=== PATIENT | female | born 1975 | race Caucasian/White ===

== ENCOUNTER 2021-02-05 17:23 | Emergency (ER) | payer OTHER, MEDICAID, SELFPAY ==
[2021-02-05 17:32] VITALS: BP 130/83; PULSE 83; RESP 16; TEMP 36.5; O2SAT 98; BMI 35.0
[2021-02-05] MEDS: KETOROLAC 30 MG/ML VIAL IM (19:47)
[2021-02-05] MEDS: OXYCODONE/APAP 5/325 PREPACK 1 BOTTLE MISC (19:47)
[2021-02-05] MEDS: CLINDAMYCIN 150 MG CAPSULE 300 MG PO (19:48)
--- NOTE | 2021-02-06 04:49 | ED.DENTAL ---
HPI - Dental/Oral General Chief complaint: Dental/Oral Stated complaint: RT SIDE MOUTH/JAW PAIN Time Seen by Provider: 02/05/21 18:01 Source: patient Mode of arrival: Ambulatory Limitations: no limitations History of Present Illness HPI Narrative: 45-year-old woman with no significant medical history presents complaining of right-sided dental pain. She notes that she has had intermittent problems with tooth 3. It has a large amalgam filling and a significant portion of the posterior cusps are broken off. It has been intermittently tender but over the last 24 hours has gotten significantly more painful now with swelling radiating up into the maxillary area. She denies any fevers, cough, chills, vomiting, diarrhea, chest pain, shortness of breath. She is asking for help in treating the dental infection and helping with the pain overall. Related Data Previous Rx's Medication Instructions Recorded clindamycin HCl 300 mg capsule 300 mg PO TID 7 Days #21 cap 02/05/21 oxycodone-acetaminophen 5 mg-325 1 tab PO Q6H PRN #12 tab 02/05/21 mg tablet Allergies Allergy/AdvReac Type Severity Reaction Status Date / Time amoxicillin [From Augmentin] Allergy Severe Anaphylaxis Verified 02/05/21 17:32 clavulanic acid Allergy Severe Anaphylaxis Verified 02/05/21 17:32 [From Augmentin] Review of Systems Review of Systems Narrative: Remainder of complete review of systems is otherwise unremarkable except for that included in the HPI. Patient History Social History Smoking Status: Never smoker Smoking Status: Never smoker Substance Use Type: marijuana Exam Narrative Exam Narrative: General: Alert appropriate in no acute distress HEENT: Mild fullness over the right maxillary area. Tooth 3. Has of large amalgam and large fractured posterior cusp. There is no obvious drainable abscess or draining infection. There is no fullness in the posterior pharynx. Respiratory: Able to speak in full sentences, no obvious respiratory distress Skin: No obvious rashes, warm and dry Neurologic: Grossly intact no obvious asymmetries or abnormalities Psych: appropriate insight and affect, cooperative Initial Vital Signs Initial Vital Signs: Vital Signs Temperature 97.7 F 02/05/21 17:32 Pulse Rate 83 02/05/21 17:32 Respiratory Rate 16 02/05/21 17:32 Blood Pressure 130/83 02/05/21 17:32 Pulse Oximetry 98 02/05/21 17:32 Course Orders Ordered: Discontinued Medications Clindamycin HCl (Clindamycin 150 Mg Capsule) 300 mg PO NOW ONE Stop: 02/05/21 19:38 Last Admin: 02/05/21 19:48 Dose: 300 mg Documented by: CHU Ketorolac Tromethamine (Ketorolac 30 Mg/Ml Vial) 30 mg IM NOW ONE Stop: 02/05/21 19:38 Last Admin: 02/05/21 19:47 Dose: 30 mg Documented by: CHU Oxycodone/Acetaminophen (Oxycodone/Apap 5/325 Prepack) 1 bottle MISC SEEINSTR ONE Stop: 02/05/21 19:38 Last Admin: 02/05/21 19:47 Dose: 1 bottle Documented by: CHU MDM - Dental/Oral MDM Narrative Medical decision making narrative: 45-year-old woman with 24 hours of increasing pain related to tooth 3. Now with fullness spreading up to the right maxillary suggesting infection. She is placed on clindamycin due to a penicillin allergy and given small course of Percocet for pain control. Recommended she contact her dentist as soon as possible for definitive care. There is no evidence of significant drainable abscess or retropharyngeal abscess at this time. She is safe for home discharge Discharge Plan Departure Patient Disposition: Home Clinical Impression: Toothache, Dental abscess Instructions: DI for Dental Pain Activity Restrictions/Additional Instructions: Thank you for coming in today You do have an abscess and I suspect it is from the broken tooth on the upper right in the very back. Please complete the course of antibiotics. Definitive treatment is likely going to be having that tooth pulled. Please contact see Mar on Sunday to schedule an appointment. Using 400 mg of ibuprofen (2 [id number] pills) and 1 Tylenol every 6 hours can be very helpful in controlling pain. For severe pain using 400 mg of ibuprofen and 1 Percocet can be helpful. I hope you feel better Prescriptions: New clindamycin HCl 300 mg capsule 300 mg PO TID 7 Days Qty: 21 RF: 0 oxycodone-acetaminophen 5-325 mg tablet 1 tab PO Q6H PRN (Reason: pain) Qty: 12 RF: 0
== END 2021-02-05 20:02 | disposition home or self-care (01) ==
PROVIDERS: Emergency Provider Emergency Medicine
DX: K08.89 Other specified disorders of teeth and supporting structures (principal); K04.7 Periapical abscess without sinus
CPT/HCPCS: 96372; 99283; J1885

== ENCOUNTER → 2022-05-09 10:41 | Outpatient (CLI) | payer OTHER, SELFPAY ==
--- NOTE | 2022-05-09 | DI.RAD.S_ITS ---
PROCEDURE: XR LUMBAR SPINE 2-3V INDICATIONS: LOW BACK PAIN TECHNIQUE: 3 views of the lumbar spine were acquired. COMPARISON: [facility], CT, CT ABDOMEN PELVIS WITH CONTRAST, 01/06/2022, 9:30. FINDINGS: Bones: 5 [id number] vertebrae are present. Tiny vertebral body osteophytes. There is normal bony alignment. No vertebral body compression fractures. No suspicious bony lesions. Soft tissues: Overlying bowel gas pattern is normal. No suspicious soft tissue calcifications. IMPRESSION: Minimal degenerative change in the lumbar spine. Dictated by: Griffin Pagan M.D. on 05/09/2022 at 12:48 Approved by: Griffin Pagan M.D. on 05/09/2022 at 12:52
== END ==
PROVIDERS: PCP Internal Medicine; Referring Provider Internal Medicine Cardiovascular Disease; Visit Provider Internal Medicine Cardiovascular Disease
DX: M54.50 Low back pain, unspecified (principal)
CPT/HCPCS: 72100